=== PATIENT | male | born 1950 | race Caucasian/White ===

== ENCOUNTER 2020-02-15 15:49 | Inpatient (IN) | payer MEDICARE ==
[2020-02-15] MEDS ORDERED: HYDROcodone/Acetaminophen 7.5/325 mg Tablet PO PRN (18:55)
[2020-02-15] MEDS: traMADol HCl 50 MG TAB PO PRN (20:27)
[2020-02-15] MEDS: traZODone HCl 50 MG TAB PO SCH (21:28)
[2020-02-16] MEDS: traMADol HCl 50 MG TAB PO PRN ×2 (05:42→14:03)
[2020-02-16] MEDS: Losartan Potassium 50 MG TAB PO SCH (08:18)
[2020-02-16] MEDS: Allopurinol 100 MG TAB PO SCH (08:18)
[2020-02-16] MEDS: Atorvastatin Calcium 40 MG TAB PO SCH (08:18)
[2020-02-16] MEDS ORDERED: Bisacodyl 10 MG SUPP PR PRN (17:26)
[2020-02-16] MEDS: HYDROcodone/Acetaminophen 5/325 mg Tablet PO PRN (17:31)
[2020-02-16] MEDS: traZODone HCl 50 MG TAB PO SCH (20:19)
[2020-02-17] MEDS: HYDROcodone/Acetaminophen 5/325 mg Tablet PO PRN ×3 (01:59→20:07)
[2020-02-17] MEDS: Tamsulosin HCl 0.4 MG CAP PO SCH (08:11)
[2020-02-17] MEDS: Allopurinol 100 MG TAB PO SCH (08:11)
[2020-02-17] MEDS: Atorvastatin Calcium 40 MG TAB PO SCH (08:11)
[2020-02-17] MEDS: Losartan Potassium 50 MG TAB PO SCH (08:11)
[2020-02-17] MEDS: Milk Of Magnesia 30 ML UDCUP PO PRN (08:15)
[2020-02-17] MEDS: traMADol HCl 50 MG TAB PO PRN (14:04)
[2020-02-17] MEDS: traZODone HCl 50 MG TAB PO SCH (20:07)
[2020-02-18] MEDS: Tamsulosin HCl 0.4 MG CAP PO SCH (08:02)
[2020-02-18] MEDS: Losartan Potassium 50 MG TAB PO SCH (08:02)
[2020-02-18] MEDS: Allopurinol 100 MG TAB PO SCH (08:03)
[2020-02-18] MEDS: Atorvastatin Calcium 40 MG TAB PO SCH (08:03)
[2020-02-18] MEDS: traMADol HCl 50 MG TAB PO PRN ×2 (08:03→16:08)
[2020-02-18] MEDS: Milk Of Magnesia 30 ML UDCUP PO PRN (10:13)
[2020-02-18] MEDS: HYDROcodone/Acetaminophen 5/325 mg Tablet PO PRN ×2 (12:39→21:13)
[2020-02-18] MEDS: traZODone HCl 50 MG TAB PO SCH (21:13)
[2020-02-19] MEDS: traMADol HCl 50 MG TAB PO PRN ×2 (05:39→13:17)
[2020-02-19] MEDS: HYDROcodone/Acetaminophen 5/325 mg Tablet PO PRN ×2 (08:26→16:59)
[2020-02-19] MEDS: Atorvastatin Calcium 40 MG TAB PO SCH (08:27)
[2020-02-19] MEDS: Losartan Potassium 50 MG TAB PO SCH (08:27)
[2020-02-19] MEDS: Allopurinol 100 MG TAB PO SCH (08:27)
[2020-02-19] MEDS: Tamsulosin HCl 0.4 MG CAP PO SCH (08:27)
[2020-02-19] MEDS: traZODone HCl 50 MG TAB PO SCH (20:44)
[2020-02-20] MEDS: Losartan Potassium 50 MG TAB PO SCH (08:27)
[2020-02-20] MEDS: Tamsulosin HCl 0.4 MG CAP PO SCH (08:27)
[2020-02-20] MEDS: Atorvastatin Calcium 40 MG TAB PO SCH (08:28)
[2020-02-20] MEDS: Allopurinol 100 MG TAB PO SCH (08:28)
[2020-02-20] MEDS: HYDROcodone/Acetaminophen 5/325 mg Tablet PO PRN ×3 (08:36→20:39)
[2020-02-20] MEDS: traZODone HCl 50 MG TAB PO SCH (20:12)
[2020-02-21] MEDS: HYDROcodone/Acetaminophen 5/325 mg Tablet PO PRN ×3 (02:20→17:19)
[2020-02-21] MEDS: Losartan Potassium 50 MG TAB PO SCH (08:01)
[2020-02-21] MEDS: Milk Of Magnesia 30 ML UDCUP PO PRN (08:01)
[2020-02-21] MEDS: Allopurinol 100 MG TAB PO SCH (08:01)
[2020-02-21] MEDS: Tamsulosin HCl 0.4 MG CAP PO SCH (08:01)
[2020-02-21] MEDS: Atorvastatin Calcium 40 MG TAB PO SCH (08:01)
[2020-02-21] MEDS: traMADol HCl 50 MG TAB PO PRN (20:29)
[2020-02-21] MEDS: traZODone HCl 50 MG TAB PO SCH (20:30)
[2020-02-22 00:39] VITALS: BMI 36.7
[2020-02-22] MEDS: Milk Of Magnesia 30 ML UDCUP PO PRN (08:11)
[2020-02-22] MEDS: Tamsulosin HCl 0.4 MG CAP PO SCH (08:11)
[2020-02-22] MEDS: Allopurinol 100 MG TAB PO SCH (08:11)
[2020-02-22] MEDS: Losartan Potassium 50 MG TAB PO SCH (08:11)
[2020-02-22] MEDS: Atorvastatin Calcium 40 MG TAB PO SCH (08:11)
[2020-02-22] MEDS: HYDROcodone/Acetaminophen 5/325 mg Tablet PO PRN ×3 (10:36→20:39)
[2020-02-22] MEDS ORDERED: Fluticasone Propionate Nasal Spray 16 gm Bottle NASAL SCH ×2 (16:30→16:45)
[2020-02-22] MEDS: traZODone HCl 50 MG TAB PO SCH (20:39)
[2020-02-23] MEDS: Tamsulosin HCl 0.4 MG CAP PO SCH (08:22)
[2020-02-23] MEDS: Losartan Potassium 50 MG TAB PO SCH (08:22)
[2020-02-23] MEDS: Allopurinol 100 MG TAB PO SCH (08:22)
[2020-02-23] MEDS: Atorvastatin Calcium 40 MG TAB PO SCH (08:22)
[2020-02-23] MEDS: Fluticasone Propionate Nasal Spray 16 gm Bottle NASAL SCH (08:23)
[2020-02-23] MEDS: Milk Of Magnesia 30 ML UDCUP PO PRN (08:24)
[2020-02-23] MEDS: traMADol HCl 50 MG TAB PO PRN ×3 (08:48→20:04)
--- NOTE | 2020-02-23 16:14 | RAD ---
PELVIS ONE VIEW: 02/23/20 No fracture was appreciated. The hips are seen incompletely, but the visible areas showed no traumati c change. There is mild joint space narrowing in each hip along with some minor osteophytes. The symp hysis is perhaps a bit wider than sometimes seen, but it is not offset. There are no prior films avai lable for comparison. The SI joints show no widening. Degenerative changes are evident in the lower l umbar spine. IMPRESSION: Degenerative changes of the hips. No acute traumatic findings. POS: HOME
--- NOTE | 2020-02-23 16:17 | RAD ---
LUMBAR SPINE THREE VIEWS: 02/23/20 Comparison is made with a 12/10/19 study. In the interval, there has been a laminectomy from about the L4-L5 disc space down through the top of S1. Skin clips are seen posteriorly. No acute fracture was evident. Mild anterior wedging of L2 was present previously. A degenerated disc with end plate change s are seen at L2-L3. A degenerated disc is also evident at L4-L5 and narrowing at L5-S1. The SI joint s are symmetrical. Large osteophytes are seen at all levels. IMPRESSION: No significant change since November except for the recent laminectomy. POS: HOME
[2020-02-23 18:25] VITALS: TEMP 97.8
[2020-02-23] MEDS: traZODone HCl 50 MG TAB PO SCH (20:04)
[2020-02-24] MEDS: HYDROcodone/Acetaminophen 5/325 mg Tablet PO PRN ×2 (04:13→13:54)
[2020-02-24 05:59] VITALS: BP 114/72
[2020-02-24] MEDS: traMADol HCl 50 MG TAB PO PRN (08:11)
[2020-02-24] MEDS: Losartan Potassium 50 MG TAB PO SCH (08:13)
[2020-02-24] MEDS: Atorvastatin Calcium 40 MG TAB PO SCH (08:13)
[2020-02-24] MEDS: Tamsulosin HCl 0.4 MG CAP PO SCH (08:13)
[2020-02-24] MEDS: Allopurinol 100 MG TAB PO SCH (08:13)
[2020-02-24] MEDS: Fluticasone Propionate Nasal Spray 16 gm Bottle NASAL SCH (08:14)
== END 2020-02-24 15:35 | disposition home or self-care (01) | DRG 560 ==
LOC: BURMED 18:28
PROVIDERS: ADMIT Family Medicine; ATTEND Family Medicine
DX: Z47.89 Encounter for other orthopedic aftercare (principal); Z68.41 Body mass index [BMI] 40.0-44.9, adult; E66.01 Morbid (severe) obesity due to excess calories; I12.9 Hypertensive chronic kidney disease with stage 1 through stage 4 chronic kidney disease, or unspecified chronic kidney disease; R26.9 Unspecified abnormalities of gait and mobility; N40.0 Benign prostatic hyperplasia without lower urinary tract symptoms; F17.210 Nicotine dependence, cigarettes, uncomplicated; E78.5 Hyperlipidemia, unspecified; K59.00 Constipation, unspecified; M10.9 Gout, unspecified; G89.29 Other chronic pain; M19.90 Unspecified osteoarthritis, unspecified site; N18.2 Chronic kidney disease, stage 2 (mild); Z98.42 Cataract extraction status, left eye; Z98.41 Cataract extraction status, right eye
CPT/HCPCS: 72100; 72170